=== PATIENT | male | born 1955 | race Caucasian/White ===

== ENCOUNTER → 2016-04-23 | Outpatient (CLI) | payer BC, OTHER ==
[~2016-04-23] MED LIST: CYCL10TA6 PO; HYDR-5688 PO; NAPR1TAB9 PO; ONDA4TAB46 SL; TRAM-10 PO
[2016-04-23 13:51] LABS: BLOOD UREA NITROGEN 29 mg/dl (7-18); CREATININE 0.92 mg/dl (0.60-1.40)
== END | disposition home or self-care (01) ==
LOC: C.LABSPEC 12:48
PROVIDERS: ATTEND Orthopaedic Surgery
DX: M54.17 Radiculopathy, lumbosacral region (principal)

== ENCOUNTER → 2016-07-01 | Outpatient (CLI) | payer BC, OTHER | END | disposition home or self-care (01) | LOC: C.PATHSPEC 16:36 | PROVIDERS: ATTEND Internal Medicine | DX: L82.1 Other seborrheic keratosis (principal) ==

== ENCOUNTER 2016-09-01 20:16 | Emergency (ER) | payer BC, OTHER ==
[~2016-09-01] VITALS: Ht 182.9 cm; Wt 102.3 kg
[~2016-09-01 20:16] MED LIST changes: -CYCL10TA6 PO; -HYDR-5688 PO; -ONDA4TAB46 SL; -TRAM-10 PO
[2016-09-01 20:20] VITALS: TEMP 36.7; Ht 182.9 cm; Wt 102.3 kg
[2016-09-01] MEDS ORDERED: MoRPHine SULFATE 10 MG/ML CARP/VIAL IV STA (20:52)
[2016-09-01] MEDS ORDERED: ONDANSETRON INJ 2 MG/ML 2 ML VIAL IV STA (20:52)
[2016-09-01] MEDS ORDERED: SODIUM CHLORIDE 0.9% 1000ML 1,000 ML IV STA ×2 (20:52)
[2016-09-01] MEDS ORDERED: KETOROLAC TROMETHAMINE 30 MG/ML VIAL IV STA (20:52)
[2016-09-01 21:33] LABS: BASO % 0.2 %; BASO ABS # 0.02 K/uL (0-0.2); COMPLETE YES; EOS % 0.1 %; HEMATOCRIT 42.8 % (42-52); IG% 0.2 %; LYMPH % 8.7 %; MEAN CELL VOLUME 89.4 fL (80-100); MEAN CORPUSCULAR HEMOGLOBIN 31.1 pg (25-34); MEAN CORPUSCULAR HGB CONC 34.8 g/dl (32-36); MEAN PLATELET VOLUME 10.5 fL (7.4-10.4); MONO % 4.8 %; PLATELET COUNT 212 K/uL (130-400); RED BLOOD COUNT 4.79 M/uL (4.7-6.1); WHITE BLOOD COUNT 9.21 K/uL (4.8-10.8)
[2016-09-01 21:41] LABS: URINE APPEARANCE CLEAR (CLEAR); URINE BILIRUBIN NEG (NEG); URINE COLOR YELLOW; URINE NITRITE NEG (NEG); URINE PH 6.5 (4.5-7.5); URINE SPECIFIC GRAVITY 1.017 (1.000-1.030); UROBILINOGEN NEG (NEG)
[2016-09-01 21:49] LABS: BUN/CREATININE RATIO 18.9 (10-20); CALCIUM 9.2 mg/dl (8.5-10.1); CREATININE 0.98 mg/dl (0.60-1.40); POTASSIUM 3.7 mmol/L (3.5-5.1)
[2016-09-01 21:49] LABS: MANUAL MICROSCOPIC REQUIRED? NO; REVIEW REQ? NO
[2016-09-01 21:52] LABS: ALB/GLOB RATIO 1.1 (0.9-2)
--- NOTE | 2016-09-01 22:45 | DIAGNOSTIC IMAGING REPORT ---
CT OF THE ABDOMEN AND PELVIS WITHOUT CONTRAST, STONE PROTOCOL CLINICAL HISTORY: Right flank pain. COMPARISON STUDY: CT of the abdomen and pelvis August 22, 2014 and renal ultrasound June 18, 2015. TECHNIQUE: Helical axial images of the abdomen and pelvis were obtained without IV or oral contrast according to renal stone protocol. FINDINGS: There is a small hiatal hernia. Left-sided parapelvic cysts are noted. There are no ureteral calculi. There is a possible punctate calculus within the lower pole of the left kidney. There is mild symmetric bilateral perinephric infiltration. A few low-attenuation left renal lesions are suboptimally assessed on this unenhanced exam but likely reflect cysts. Unenhanced images of liver, spleen, adrenal glands and pancreas are unremarkable. There is no evidence for a bowel obstruction. The appendix is normal. There is no ascites or lymphadenopathy. No suspicious skeletal lesions are identified. Postsurgical findings within the lumbar spine are suboptimally assessed by CT. IMPRESSION: 1. No hydronephrosis or ureteral tract. Possible punctate left renal calculus. Left-sided parapelvic cysts. 2. Mild symmetric bilateral perinephric infiltration which is nonspecific and be correlated with urinalysis. 3. No bowel obstruction. Normal appendix. Electronically signed by: Faustino Padilla M.D. 09/01/2016 10:44 PM Dictated Date/Time: 09/01/2016 10:35 PM
[2016-09-01] MEDS ORDERED: TRAMADOL HCL 50 MG HOME PACK PO ONE (23:00)
[2016-09-01] MEDS ORDERED: FLEXERIL HOME PACK 10 MG VIAL PO ONE (23:00)
[2016-09-01] MEDS ORDERED: CYCL10TA6 PO (23:01)
[2016-09-01] MEDS ORDERED: TRAM-10 PO (23:01)
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
[2016-09-01 23:08] VITALS: BP 134/79; PULSE 67; O2SAT 96
[2016-09-02] MEDS ORDERED: CYCL10TA6 PO (21:35)
[2016-09-02] MEDS ORDERED: ONDA4TAB46 SL (21:35)
[2016-09-02] MEDS ORDERED: HYDR-5688 PO (21:35)
== END 2016-09-01 23:18 | disposition home or self-care (01) ==
LOC: C.EDB 20:18 → C.EDA 23:18
DX: R10.9 Unspecified abdominal pain (principal); K21.9 Gastro-esophageal reflux disease without esophagitis; G82.20 Paraplegia, unspecified

== ENCOUNTER 2016-09-02 20:56 | Emergency (ER) | payer BC ==
[~2016-09-02] VITALS: Ht 182.9 cm; Wt 103.0 kg
[~2016-09-02 20:56] MED LIST changes: +CYCL10TA6 PO; +TRAM-10 PO
[2016-09-02 20:59] VITALS: TEMP 36.8; Ht 182.9 cm; Wt 103.0 kg
--- NOTE | 2016-09-02 21:15 | EMERGENCY ROOM VISIT NOTE ---
History Report prepared by Sujit: Vini Miller Under the Supervision of: Dr. Austin Burnette M.D. First contact with patient: 21:02 Chief Complaint: BACK PAIN Stated Complaint: SEVERE BACK PAIN History of Present Illness The patient is a 61 year old male who presents to the Emergency Room with complaints of worsening right-sided back pain that started 2 days ago. He says the pain makes it hurt to move and breathe, and he describes the pain as terrible and "unbelievable".The patient says that he is short of breath due to the pain. He denies any recent injury that would cause this pain. He was seen here yesterday for the same pain. The patient says that he saw his primary care physician this morning, and the physician thought it could be the start of shingles. The patient had his pain medications increased. He denies any abdominal pain, cough numbness in his legs, or loss of bowel or bladder control. He says that he feels weak because he has not eaten in 2 days due to not having an appetite. The patient's notes that the patient has taken Hydrocodone and Flexeril today. She says that last night, the patient's shirt was soaking wet around the back only. The patient adds that he had a spinal cord injury 40 years ago, and had back surgery a year ago. He has no history of kidney stones or blood clots. Source of History: patient, spouse/significant other Onset: A few days ago Position: back (right) Symptom Intensity: terrible, unbelievable Timing: worsening Modifying Factors (Worsening): breathing, movement Associated Symptoms: + diaphoresis, + SOB, + weakness (not eating), No cough , No abdominal pain, No numbness (no increased numbness in legs) Note: Associated symptoms: Denies loss of bowel or bladder control. Review of Systems See HPI for pertinent positives & negatives. A total of 10 systems reviewed and were otherwise negative. Past Medical & Surgical Medical Problems: (1) GERD (gastroesophageal reflux disease) (2) Paraplegia, Unspecified Surgical Problems: (1) History of lumbar discectomy (2) History of lumbar laminectomy Family History FHx: cancer Social History Smoking Status: Never Smoker Marital Status: Housing Status: lives with family Occupation Status: employed Current/Historical Medications Scheduled Cyclobenzaprine Hcl (Flexeril), 10 MG PO TID Hydrocodone/Acetaminophen 5MG/325MG ([place] 5MG/325MG), 1 TABLET PO Q4 Scheduled PRN Ondansetron Hcl (Zofran), 1 TAB SL prn ud PRN for Nausea Allergies Coded Allergies: Adhesives (Verified Allergy, Intermediate, REDDENED RASH, 09/02/16) Bacitracin (Verified Allergy, Unknown, UNKNOWN, 09/02/16) Neomycin (Verified Allergy, Unknown, UNKNOWN, 09/02/16) Penicillins (Verified Allergy, Unknown, UNKNOWN-HAPPENED LONG AGO, 09/02/16 ) Polymyxin B (Verified Allergy, Unknown, UNKNOWN, 09/02/16) Physical Exam Vital Signs Date Time Temp Pulse Resp B/P (MAP) Pulse Ox O2 Delivery O2 Flow Rate FiO2 09/02/16 23:33 72 16 170/98 95 Room Air 09/02/16 22:23 68 18 153/85 97 Room Air 09/02/16 22:07 67 09/02/16 21:35 69 20 208/109 97 Room Air 09/02/16 20:59 36.8 84 18 169/91 95 Room Air Physical Exam General: Well developed well nourished uncomfortable appearing middle aged male complaining of mid-back pain worse with movement, breathing comfortably on room air. Normal speech HEENT: Normal cephalic atraumatic. Pupils are equal round and reactive to light. Extraocular movements are intact. Oropharynx is pink with moist mucous membranes. No swelling of the mouth lips or tongue. Neck: Supple with a midline trachea. No meningeal signs or stiffness, no JVD or bruits. No Stridor. Chest: Clear to auscultation bilaterally. No wheezes or rhonchi. No increased work of breathing. Heart: regular rate and rhythm. Abdomen: Soft nontender, nondistended without rebound guarding or rigidity. Extremities: No cyanosis clubbing or edema. No calf tenderness or assymetry Spine/Back. Non tender to palpation. No CVA tenderness. No rash. Skin: Good turgor without rashes. Neurologic exam: Cranial nerves two through 12 are intact. Motor and sensation are intact and symmetrical throughout. Medical Decision & Procedures ER Provider Diagnostic Interpretation: Radiology results as stated below per my review and radiologist interpretation: SINGLE VIEW CHEST CLINICAL HISTORY: Atypical chest pain. FINDINGS: An AP, portable, upright chest radiograph is obtained. No prior studies are available for comparison at the time of dictation. The examination is degraded by portable technique and patient rotation. The cardiomediastinal silhouette is unremarkable. There is elevation of right hemidiaphragm with mild bibasilar atelectasis. The lungs and pleural spaces are otherwise clear. No pneumothorax is seen. There is chronic deformity of the right seventh rib. Surgical clips project over the upper abdomen. IMPRESSION: No acute cardiopulmonary abnormality. Electronically signed by: Saroj Garibay M.D. 09/02/2016 9:50 PM Dictated Date/Time: 09/02/2016 9:[address] ANGIOGRAM OF THE CHEST CLINICAL HISTORY: Right-sided chest pain. COMPARISON STUDY: Chest x-ray dated 09/02/2016. Abdominal CT dated 09/01/2016 and 08/22/2014. TECHNIQUE: Following the IV administration of 109 cc of Optiray 320, CT angiogram of the chest was performed from the upper abdomen to the thoracic inlet utilizing the pulmonary embolus protocol. Images are reviewed in the axial, sagittal, and coronal planes. 3-D MIPS images are created and assessed. IV contrast was administered without complication. CT DOSE: 536.76 mGy.cm FINDINGS: Thyroid: Imaged portions of the thyroid gland are normal in size and attenuation. Thoracic aorta: There is mild atherosclerotic calcification of the thoracic aorta, which is normal in caliber and demonstrates standard 3-vessel arch anatomy. The aorta is not well opacified. Pulmonary vasculature: The pulmonary arteries are dilated suggesting pulmonary artery hypertension. There are no filling defects identified in main, lobar, or segmental pulmonary branches to suggest pulmonary embolus. Heart: The heart is enlarged and without pericardial effusion. Lungs and pleural spaces: There is no airspace consolidation or pleural effusion. Dependent atelectasis is noted. The trachea and central airways are clear. A 6 mm focus of pleural-based nodularity is seen in the right lower lobe along the major fissure on image #105. Smaller foci of pleural-based nodularity are noted along the right major and minor fissures. There is a 5 mm right upper lobe pulmonary nodule seen on image #159. Mediastinum: There is no mediastinal lymphadenopathy. Surekha: Clear. Axillae: There is no axillary lymphadenopathy. Upper abdomen: There is a small hiatal hernia. Partially visualized upper abdominal viscera is otherwise within normal limits. Skeletal structures: The skeletal structures are osteopenic. Degenerative change is noted throughout the thoracic spine. No lytic or blastic bony lesions are seen. Chronic deformity of the right seventh rib is similar to prior studies. IMPRESSION: 1. There is no evidence of pulmonary embolus in the main, lobar, or segmental pulmonary arteries. 2. There is no airspace consolidation or pleural effusion. 3. Cardiomegaly with evidence of pulmonary artery hypertension. 4. There are scattered pulmonary and pleural-based nodules as above measuring up to 6 mm. These can be followed as per the Fleischner criteria. See below. Please refer to below summary of Fleischner criteria recommendations for follow-up of incidental CT nodules (Jayant Gagnon, Guidelines for management of small pulmonary nodules detected on CT scans: A statement from the Fleischner Society, Radiology 237: [phone].) SOLID NODULES Solitary nodule size: <6 mm * low risk patients: no follow-up needed * high risk patients: optional CT at 12 months Solitary nodule size: 6-8 mm * low risk patients: follow-up at 6-12 months, then consider further follow-up at 18-24 months * high risk patients: initial follow-up CT at 6-12 months and then at 18-24 months if no change Solitary nodule size: >8 mm * either low or high risk patients - consider follow-up CT at 3 months, and/or CT-PET, and/or biopsy Multiple nodules size: <6 mm * low risk patients: no routine follow-up * high risk patients: optional CT at 12 months Multiple nodules size: 6-8 mm * low risk patients: follow-up at 3-6 months, then consider further follow-up at 18-24 months * high risk patients: follow-up at 3-6 months, then at 18-24 months if no change Multiple nodules size: >8 mm * low risk patients: follow-up at 3-6 months, then consider further follow-up at 18-24 months * high risk patients: follow-up at 3-6 months, then at 18-24 months if no change Note: newly detected indeterminate nodule in persons 35 years of age or older. * low risk patients: minimal or absent history of smoking and/or other known risk factors * high risk patients: history of smoking or of other known risk factors (e.g. first degree relative with lung cancer, or exposure to asbestos, radon, uranium) * if a nodule up to 8 mm is partly solid or is ground glass further follow-up is required after 24 months to exclude possible slow growing adenocarcinoma (TRUDY) SUBSOLID NODULES Solitary pure ground-glass nodule * nodule size <6 mm - no CT follow-up required * nodule size >=6 mm - follow-up CT at 6-12 months, then every 2 years until 5 years Solitary part-solid nodule * nodule size <6 mm - no CT follow-up required * nodule size >=6 mm - follow-up CT at 3-6 months. If unchanged, and solid component remains <6 mm, then annual follow-up for 5 years Multiple subsolid nodules * nodule size <6 mm - follow-up CT at 3-6 months, consider further follow-up at 2 and 4 years if stable * nodule size >=6 mm - follow-up CT at 3-6 months, subsequent management based on the most suspicious nodule(s) Electronically signed by: Saroj Garibay M.D. 09/02/2016 10:51 PM Dictated Date/Time: 09/02/2016 10:45 PM Laboratory Results 09/02/16 21:30 Red Blood Count 4.77, Mean Corpuscular Volume 88.3, Mean Corpuscular Hemoglobin 31.2, Mean Corpuscular Hemoglobin Concent 35.4, Mean Platelet Volume 10.0, Neutrophils (%) (Auto) 81.2, Lymphocytes (%) (Auto) 9.7, Monocytes (%) (Auto) 8.3, Eosinophils (%) (Auto) 0.3, Basophils (%) (Auto) 0.2, Neutrophils # (Auto) 7.98, Lymphocytes # (Auto) 0.95, Monocytes # (Auto) 0.82, Eosinophils # (Auto) 0.03, Basophils # (Auto) 0.02 09/02/16 21:30 Test 09/02/16 21:30 09/02/16 21:39 White Blood Count 9.83 K/uL (4.8-10.8) Red Blood Count 4.77 M/uL (4.7-6.1) Hemoglobin 14.9 g/dL (14.0-18.0) Hematocrit 42.1 % (42-52) Mean Corpuscular Volume 88.3 fL (80-100) Mean Corpuscular Hemoglobin 31.2 pg (25-34) Mean Corpuscular Hemoglobin Concent 35.4 g/dl (32-36) Platelet Count 218 K/uL (130-400) Mean Platelet Volume 10.0 fL (7.4-10.4) Neutrophils (%) (Auto) 81.2 % Lymphocytes (%) (Auto) 9.7 % Monocytes (%) (Auto) 8.3 % Eosinophils (%) (Auto) 0.3 % Basophils (%) (Auto) 0.2 % Neutrophils # (Auto) 7.98 K/uL (1.4-6.5) Lymphocytes # (Auto) 0.95 K/uL (1.2-3.4) Monocytes # (Auto) 0.82 K/uL (0.11-0.59) Eosinophils # (Auto) 0.03 K/uL (0-0.5) Basophils # (Auto) 0.02 K/uL (0-0.2) RDW Standard Deviation 38.4 fL (36.4-46.3) RDW Coefficient of Variation 12.0 % (11.5-14.5) Immature Granulocyte % (Auto) 0.3 % Immature Granulocyte # (Auto) 0.03 K/uL (0.00-0.02) Anion Gap 6.0 mmol/L (3-11) Est Creatinine Clear Calc Drug Dose 100.1 ml/min Estimated GFR () 99.0 Estimated GFR (Non- 85.4 BUN/Creatinine Ratio 15.9 (10-20) Calcium Level 9.0 mg/dl (8.5-10.1) Total Bilirubin 0.7 mg/dl (0.2-1) Direct Bilirubin 0.1 mg/dl (0-0.2) Aspartate Amino Transf (AST/SGOT) 16 U/L (15-37) Alanine Aminotransferase (ALT/SGPT) 30 U/L (12-78) Alkaline Phosphatase 86 U/L (45-117) Total Protein 7.5 gm/dl (6.4-8.2) Albumin 3.8 gm/dl (3.4-5.0) Lipase 77 U/L (73-393) Bedside D-Dimer > 450 ng/mlFEU (0-450) Laboratory studies as stated above per my review. Medications Administered Medications (Trade) Dose Ordered Sig/Deb Route Start Time Stop Time Status Last Admin Dose Admin Sodium Chloride 1,000 ml @ 999 mls/hr Q1H1M STAT IV 09/02/16 21:16 09/02/16 22:16 DC 09/02/16 21:38 999 MLS/HR Sodium Chloride 1,000 ml @ 150 mls/hr Q6H40M ONCE IV 09/02/16 21:16 09/03/16 03:55 09/02/16 21:16 150 MLS/HR Ketorolac Tromethamine (Toradol Inj) 30 mg NOW STAT IV 09/02/16 21:16 09/02/16 21:18 DC 09/02/16 21:43 30 MG Ondansetron HCl (Zofran Inj) 4 mg NOW STAT IV 09/02/16 21:16 09/02/16 21:18 DC 09/02/16 21:42 4 MG Morphine Sulfate (MoRPHine SULFATE INJ) 2 mg STK-MED ONCE .ROUTE 09/02/16 21:39 09/02/16 21:40 DC 09/02/16 21:39 2 MG Morphine Sulfate (MoRPHine SULFATE INJ) 4 mg STK-MED ONCE .ROUTE 09/02/16 21:39 09/02/16 21:40 DC 09/02/16 21:39 4 MG ECG Indication: SOB/dyspnea Rate (beats per minute): 70 Rhythm: normal sinus Findings: no acute ischemic change, no ectopy Comparison ECG Date: no prior available ED Course 2102: Past medical records reviewed. The patient was evaluated in room C7, and a complete history and physical examination were performed. 2115: Ordered Morphine Sulfate Inj 6 mg IV, Zofran Inj 4 mg IV, Toradol Inj 30 mg IV, NSS 1000 ml @ 150 mls/hr IV, NSS 1000 ml @ 999 mls/hr IV. 2226: I reevaluated the patient, and he is doing well. He is going to CT. 7: I reevaluated the patient and he is doing well. 9: I discussed the patient with Dr. Hilario - [facility] - says he saw the patient in the office, and thinks it is musculoskeletal. He told the patient to continue his medications. 2327: Upon reevaluation, the patient is resting comfortably. I discussed the results and treatment plan with him. He verbalized agreement of the treatment plan. The patient was discharged home. Medical Decision Differentials include, but are not limited to; musculoskeletal, pulmonary disease, kidney stone, aneurysm, infection, shingles, electrolyte or metabolic abnormality. Medication Reconciliation: I attest that I have personally reviewed the patient' s current medication list. Blood Pressure Screening: Patient was found to have a slightly elevated blood pressure due to circumstances. I do not believe that the patient requires hypertension monitoring. This patient comes in as described above. He was placed in room C7. He is having flank pain. It is in his right posterior lower chest/flank. It is worse with movement and palpation. He does have a history of a spinal cord injury as a child but has no new numbness weakness. Specifically, he has nothing to suggest cauda equina syndrome. He has had no fever or chills. No dysuria or hematuria. He had extensive workup done yesterday including a CAT scan of his abdomen which was unremarkable. His blood work was unremarkable. I did an EKG today which shows no ischemic changes or evidence to suggest cardiac event. His blood work was also unremarkable with exception d-dimer being elevated. In light of this, I did a chest CT. There is no evidence of PE. The patient did receive IV morphine 6 mg as well as Toradol 30 mg IV and Zofran 4 g IV. He is feeling significantly better. I did discuss case with Dr. Shauna Collazo, his primary care physician he saw him today and and believes that it is musculoskeletal, I agree. the patient should continue to use hydrocodone and can increase it to 2 pills every 4 hours at a maximum and was warned that this could make him drowsy and be careful getting up and down. And return if: Increasing pain, worsening symptoms, numbness weakness, fever chills, any new problems or concerns and follow-up with Dr. Hilario for recheck Consults Time Called: [phone] Consulting Physician: Dr. Hilario - [facility] Returned Call: [phone] I discussed the patient with Dr. Hilario - [facility] - says he saw the patient in the office, and thinks it is musculoskeletal. He told the patient to continue his medications. Impression Primary Impression: Right flank pain Scribe Attestation The scribe's documentation has been prepared under my direction and personally reviewed by me in its entirety. I confirm that the note above accurately reflects all work, treatment, procedures, and medical decision making performed by me. Departure Information Dispostion Home / Self-Care Referrals Barry Alvarez M.D. (PCP) Forms HOME CARE DOCUMENTATION FORM, IMPORTANT VISIT INFORMATION Patient Instructions My [facility] Additional Instructions Rest. Use a heating pad Drink plenty of fluids. Continue to use her Flexeril as directed The hydrocodone you can use one to 2 pills every 4-6 hours Remember that the hydrocodone pill has 1 Tylenol/acetaminophen in it and do not take it with any other medications that contain acetaminophen/Tylenol Follow-up with Dr. Hilario Return to the ER if: Numbness or weakness, fever chills, change in bowel or bladder function, any new problems concerns
[2016-09-02] MEDS ORDERED: SODIUM CHLORIDE 0.9% 1000ML 1,000 ML IV STA (21:16)
[2016-09-02] MEDS ORDERED: ONDANSETRON INJ 2 MG/ML 2 ML VIAL IV STA (21:16)
[2016-09-02] MEDS ORDERED: SODIUM CHLORIDE 0.9% 1000ML 1,000 ML IV ONE (21:16)
[2016-09-02] MEDS ORDERED: MoRPHine SULFATE 10 MG/ML CARP/VIAL IV STA (21:16)
[2016-09-02] MEDS ORDERED: KETOROLAC TROMETHAMINE 30 MG/ML VIAL IV STA (21:16)
[2016-09-02] MEDS ORDERED: HYDR-5688 PO (21:35)
[2016-09-02] MEDS ORDERED: ONDA4TAB46 SL (21:35)
[2016-09-02] MEDS ORDERED: CYCL10TA6 PO (21:35)
[2016-09-02] MEDS ORDERED: MoRPHine SULFATE 4 MG/ML 1 ML CARP ONE (21:39)
[2016-09-02] MEDS ORDERED: MoRPHine SULFATE 2 MG/ML CARP ONE (21:39)
[2016-09-02 21:51] LABS: BASO % 0.2 %; BASO ABS # 0.02 K/uL (0-0.2); COMPLETE YES; EOS % 0.3 %; HEMATOCRIT 42.1 % (42-52); IG% 0.3 %; LYMPH % 9.7 %; LYMPH ABS # 0.95 K/uL (1.2-3.4); MEAN CELL VOLUME 88.3 fL (80-100); MEAN CORPUSCULAR HEMOGLOBIN 31.2 pg (25-34); MEAN CORPUSCULAR HGB CONC 35.4 g/dl (32-36); MONO % 8.3 %; NEUT % 81.2 %; PLATELET COUNT 218 K/uL (130-400); RED BLOOD COUNT 4.77 M/uL (4.7-6.1); WHITE BLOOD COUNT 9.83 K/uL (4.8-10.8)
--- NOTE | 2016-09-02 21:51 | DIAGNOSTIC IMAGING REPORT ---
SINGLE VIEW CHEST CLINICAL HISTORY: Atypical chest pain. FINDINGS: An AP, portable, upright chest radiograph is obtained. No prior studies are available for comparison at the time of dictation. The examination is degraded by portable technique and patient rotation. The cardiomediastinal silhouette is unremarkable. There is elevation of right hemidiaphragm with mild bibasilar atelectasis. The lungs and pleural spaces are otherwise clear. No pneumothorax is seen. There is chronic deformity of the right seventh rib. Surgical clips project over the upper abdomen. IMPRESSION: No acute cardiopulmonary abnormality. Electronically signed by: Saroj Graibay M.D. 09/02/2016 9:50 PM Dictated Date/Time: 09/02/2016 9:49 PM
[2016-09-02 22:08] LABS: BUN/CREATININE RATIO 15.9 (10-20); CREATININE 0.95 mg/dl (0.60-1.40); POTASSIUM 3.6 mmol/L (3.5-5.1)
[2016-09-02] MEDS ORDERED: OPTIRAY 320 IV PRN (22:30)
--- NOTE | 2016-09-02 22:52 | DIAGNOSTIC IMAGING REPORT ---
CT ANGIOGRAM OF THE CHEST CLINICAL HISTORY: Right-sided chest pain. COMPARISON STUDY: Chest x-ray dated 09/02/2016. Abdominal CT dated 09/01/2016 and 08/22/2014. TECHNIQUE: Following the IV administration of 109 cc of Optiray 320, CT angiogram of the chest was performed from the upper abdomen to the thoracic inlet utilizing the pulmonary embolus protocol. Images are reviewed in the axial, sagittal, and coronal planes. 3-D MIPS images are created and assessed. IV contrast was administered without complication. CT DOSE: 536.76 mGy.cm FINDINGS: Thyroid: Imaged portions of the thyroid gland are normal in size and attenuation. Thoracic aorta: There is mild atherosclerotic calcification of the thoracic aorta, which is normal in caliber and demonstrates standard 3-vessel arch anatomy. The aorta is not well opacified. Pulmonary vasculature: The pulmonary arteries are dilated suggesting pulmonary artery hypertension. There are no filling defects identified in main, lobar, or segmental pulmonary branches to suggest pulmonary embolus. Heart: The heart is enlarged and without pericardial effusion. Lungs and pleural spaces: There is no airspace consolidation or pleural effusion. Dependent atelectasis is noted. The trachea and central airways are clear. A 6 mm focus of pleural-based nodularity is seen in the right lower lobe along the major fissure on image #105. Smaller foci of pleural-based nodularity are noted along the right major and minor fissures. There is a 5 mm right upper lobe pulmonary nodule seen on image #159. Mediastinum: There is no mediastinal lymphadenopathy. Surekha: Clear. Axillae: There is no axillary lymphadenopathy. Upper abdomen: There is a small hiatal hernia. Partially visualized upper abdominal viscera is otherwise within normal limits. Skeletal structures: The skeletal structures are osteopenic. Degenerative change is noted throughout the thoracic spine. No lytic or blastic bony lesions are seen. Chronic deformity of the right seventh rib is similar to prior studies. IMPRESSION: 1. There is no evidence of pulmonary embolus in the main, lobar, or segmental pulmonary arteries. 2. There is no airspace consolidation or pleural effusion. 3. Cardiomegaly with evidence of pulmonary artery hypertension. 4. There are scattered pulmonary and pleural-based nodules as above measuring up to 6 mm. These can be followed as per the Fleischner criteria. See below. Please refer to below summary of Fleischner criteria recommendations for follow-up of incidental CT nodules (Jayant Gagnon, Guidelines for management of small pulmonary nodules detected on CT scans: A statement from the Fleischner Society, Radiology 237: [phone].) SOLID NODULES Solitary nodule size: <6 mm * low risk patients: no follow-up needed * high risk patients: optional CT at 12 months Solitary nodule size: 6-8 mm * low risk patients: follow-up at 6-12 months, then consider further follow-up at 18-24 months * high risk patients: initial follow-up CT at 6-12 months and then at 18-24 months if no change Solitary nodule size: >8 mm * either low or high risk patients - consider follow-up CT at 3 months, and/or CT-PET, and/or biopsy Multiple nodules size: <6 mm * low risk patients: no routine follow-up * high risk patients: optional CT at 12 months Multiple nodules size: 6-8 mm * low risk patients: follow-up at 3-6 months, then consider further follow-up at 18-24 months * high risk patients: follow-up at 3-6 months, then at 18-24 months if no change Multiple nodules size: >8 mm * low risk patients: follow-up at 3-6 months, then consider further follow-up at 18-24 months * high risk patients: follow-up at 3-6 months, then at 18-24 months if no change Note: newly detected indeterminate nodule in persons 35 years of age or older. * low risk patients: minimal or absent history of smoking and/or other known risk factors * high risk patients: history of smoking or of other known risk factors (e.g. first degree relative with lung cancer, or exposure to asbestos, radon, uranium) * if a nodule up to 8 mm is partly solid or is ground glass further follow-up is required after 24 months to exclude possible slow growing adenocarcinoma (TRUDY) SUBSOLID NODULES Solitary pure ground-glass nodule * nodule size <6 mm - no CT follow-up required * nodule size >=6 mm - follow-up CT at 6-12 months, then every 2 years until 5 years Solitary part-solid nodule * nodule size <6 mm - no CT follow-up required * nodule size >=6 mm - follow-up CT at 3-6 months. If unchanged, and solid component remains <6 mm, then annual follow-up for 5 years Multiple subsolid nodules * nodule size <6 mm - follow-up CT at 3-6 months, consider further follow-up at 2 and 4 years if stable * nodule size >=6 mm - follow-up CT at 3-6 months, subsequent management based on the most suspicious nodule(s) Electronically signed by: Saroj Garibay M.D. 09/02/2016 10:51 PM Dictated Date/Time: 09/02/2016 10:45 PM
[2016-09-02 23:33] VITALS: BP 170/98; PULSE 72; O2SAT 95
== END 2016-09-02 23:40 | disposition home or self-care (01) ==
LOC: C.EDB 20:57 → C.EDC 23:40
DX: R10.9 Unspecified abdominal pain (principal); K21.9 Gastro-esophageal reflux disease without esophagitis; G82.20 Paraplegia, unspecified

== ENCOUNTER → 2017-03-03 | Outpatient (CLI) | payer OTHER ==
[~2017-03-03] MED LIST changes: +HYDR-5688 PO; -NAPR1TAB9 PO; +ONDA4TAB46 SL; -TRAM-10 PO
--- NOTE | 2017-03-03 12:18 | DIAGNOSTIC IMAGING REPORT ---
(CHEST) THORAX WITHOUT CT DOSE: 586.11 mGycm HISTORY: Follow-up. R91.8 Multiple lung nodules on [id number] TECHNIQUE: Multiaxial CT images of the chest were performed without contrast. A dose lowering technique was utilized adhering to the principles of ALARA. COMPARISON: Chest CTA 09/02/2016 FINDINGS: The central airways are patent. No pleural effusions. No pneumothorax. There again noted a few scattered subcentimeter pulmonary nodules. These remain unchanged in size. No new pulmonary nodules identified. Dominant nodule within the right lung is seen within the right lower lobe abutting the major fissure and measures 6 mm. Dominant nodule within the left lung is seen within the left upper lobe on image 92 and measures 5 mm. No suspicious lytic or blastic osseous lesions. Right lateral seventh rib deformity, unchanged. No mediastinal or hilar lymphadenopathy. Normal caliber thoracic aorta. The heart is normal in size. Small hiatus hernia. The unenhanced liver, spleen, and adrenal glands are unremarkable. IMPRESSION: No change in the few scattered subcentimeter pulmonary nodules as described above with the largest measuring 6 mm. No new pulmonary nodules. Please refer to the chart below for continued follow-up. Please refer to below summary of Fleischner criteria recommendations for follow-up of incidental CT nodules (Jayant Gagnon, Guidelines for management of small pulmonary nodules detected on CT scans: A statement from the Fleischner Society, Radiology 237: [id number].) SOLID NODULES Solitary nodule size: <6 mm * Low risk patients: no follow-up needed * high risk patients: optional CT at 12 months Solitary nodule size: 6-8 mm * Low risk patients: follow-up at 6-12 months, then consider further follow-up at 18-24 months * high risk patients: initial follow-up CT at 6-12 months and then at 18-24 months if no change Solitary nodule size: >8 mm * either low or high risk patients - consider follow-up CT at 3 months, and/or CT-PET, and/or biopsy Multiple nodules size: <6 mm * Low risk patients: no routine follow-up * high risk patients: optional CT at 12 months Multiple nodules size: 6-8 mm * Low risk patients: follow-up at 3-6 months, then consider further follow-up at 18-24 months * high risk patients: follow-up at 3-6 months, then at 18-24 months if no change Multiple nodules size: >8 mm * Low risk patients: follow-up at 3-6 months, then consider further follow-up at 18-24 months * high risk patients: follow-up at 3-6 months, then at 18-24 months if no change Note: newly detected indeterminate nodule in persons 35 years of age or older. * Low risk patients: minimal or absent history of smoking and/or other known risk factors * high risk patients: history of smoking or of other known risk factors (e.g. first degree relative with lung cancer, or exposure to asbestos, radon, uranium) * if a nodule up to 8 mm is partly solid or is ground glass further follow-up is required after 24 months to exclude possible slow growing adenocarcinoma (TRUDY) SUBSOLID NODULES Solitary pure ground-glass nodule * nodule size <6 mm - no CT follow-up required * nodule size >=6 mm - follow-up CT at 6-12 months, then every 2 years until 5 years Solitary part-solid nodule * nodule size <6 mm - no CT follow-up required * nodule size >=6 mm - follow-up CT at 3-6 months. If unchanged, and solid component remains <6 mm, then annual follow-up for 5 years Multiple subsolid nodules * nodule size <6 mm - follow-up CT at 3-6 months, consider further follow-up at 2 and 4 years if stable * nodule size >=6 mm - follow-up CT at 3-6 months, subsequent management based on the most suspicious nodule(s) Electronically signed by: Stanley Sanchez M.D. 03/03/2017 12:16 PM Dictated Date/Time: 03/03/2017 12:10 PM
== END | disposition home or self-care (01) ==
LOC: C.CTS 11:21
PROVIDERS: ATTEND Surgery
DX: R91.8 Other nonspecific abnormal finding of lung field (principal)

== ENCOUNTER → 2017-05-24 | Outpatient (CLI) | payer OTHER ==
[2017-05-24 18:45] LABS: LUTEINIZING HORMONE 7.22 IU/L
[2017-05-28 16:37] LABS: TESTOSTERONE,TOTAL 345 ng/dL (250-1100)
== END | disposition home or self-care (01) ==
LOC: C.LABSPEC 17:34
PROVIDERS: ATTEND Internal Medicine
DX: N62 Hypertrophy of breast (principal)

== ENCOUNTER → 2017-07-05 | Outpatient (CLI) | payer OTHER ==
--- NOTE | 2017-07-05 15:05 | MAMMOGRAPHY REPORT ---
MALE BILATERAL DIGITAL DIAGNOSTIC MAMMOGRAM TOMOSYNTHESIS WITH CAD AND TARGETED BILATERAL ULTRASOUND: 07/05/2017 CLINICAL HISTORY: 62-year-old male presents with a reported history of a few weeks of bilateral nippl e soreness, which has since subsided. No skin erythema or thickening. No nipple discharge. No palp able lumps. Patient also reports recent increase in exercise regimen. TECHNIQUE: Bilateral breast tomosynthesis in addition to standard 2D mammography was performed. Curr ent study was also evaluated with a Computer Aided Detection (CAD) system. COMPARISON: No prior exams were available for comparison. BREAST COMPOSITION: The breast parenchyma is nearly entirely fat. FINDINGS: There is mild glandular tissue in the retroareolar right breast, consistent with gynecomas tia. No significant glandular tissue development of the left breast. No suspicious masses, architec tural distortion or cluster of microcalcifications is seen. Targeted ultrasound was performed in the retroareolar aspect of each breast. There is a hypoechoic a mount of glandular tissue in the retroareolar right breast. No significant glandular tissue developm ent in the left retroareolar breast. These findings are compatible with gynecomastia. There is no e vidence of a suspicious solid mass or targeted sonographic evidence of malignancy. IMPRESSION: ACR BI-RADS CATEGORY 2: BENIGN, TARGETED ULTRASOUND ACR BI-RADS CATEGORY 2: BENIGN There is mild right breast gynecomastia. No suspicious mammographic or targeted sonographic abnormal ity of either breast or evidence of malignancy. It is unclear if the right gynecomastia could be rel ated to the reported nipple soreness which has subsided. Therefore, continued clinical follow-up and clinical monitoring is recommended. These results and recommendations were discussed with the patient at the time of the exam. Approximately 10% of breast cancers are not detected with mammography. A negative mammographic report should not delay biopsy if a clinically suggestive mass is present. Loly Talley M.D. ay/:07/05/2017 12:48:03 Heating Engineer: Sarina CHANG)(Alyssia), [facility] letter sent: Normal 1/2 BI-RADS Code: ACR BI-RADS Category 2: Benign Ultrasound BI-RADS: ACR BI-RADS Category 2: Benign
== END | disposition home or self-care (01) ==
LOC: C.MAMM 11:00
PROVIDERS: ATTEND Internal Medicine
DX: N62 Hypertrophy of breast (principal)

== ENCOUNTER → 2017-09-29 | Outpatient (CLI) | payer OTHER ==
[~2017-09-29] MED LIST changes: -CYCL10TA6 PO; -HYDR-5688 PO; +NAPR1TAB9 PO; -ONDA4TAB46 SL
--- NOTE | 2017-09-29 12:01 | DIAGNOSTIC IMAGING REPORT ---
(CHEST) THORAX WITHOUT CLINICAL HISTORY: 62 years-old Male presenting with R91.8 Multiple lung nodules on [id number]. TECHNIQUE: Multidetector CT imaging of the chest was performed without the use of intravenous contrast. IV contrast: None. A dose lowering technique was used consistent with the principles of ALARA (as low as reasonably achievable). COMPARISON: 03/03/2017. CT DOSE (mGy.cm): The estimated cumulative dose is 582.87 mGy.cm. FINDINGS: Shoe Shiner topogram: Surgical clips project over the mediastinal right lung base. On soft tissue windows, normal thyroid and thoracic inlet. No axillary, supraclavicular, or mediastinal lymphadenopathy. Evaluation of the basia limited without intravenous contrast. Bilateral gynecomastia. Atherosclerosis of the aorta. Normal heart size. No pericardial or pleural effusion. Parapelvic cysts may be present in the left kidney. On lung windows, multiple solid pulmonary nodules measuring up to 6-7 mm. Several of these are fissural in location including the largest nodules, which are located in the right middle and lower lobes. Fissural nodules are noted in the right middle and lower lobes (series 4 images 201, 149, 147, 143). Peripheral solid 5 mm nodule noted in the anterior segment of the left upper lobe (series 4 image 109). Additional stable punctate nodules also evident bilaterally (series 4 images 87, 114, 144). No other focal infiltrate. Airways patent. On bone windows, degenerative changes of the spine. Multiple old rib fractures suggested. IMPRESSION: 1. Stable bilateral solid pulmonary nodules measuring up to 6-7 mm. Follow-up per Ricky Society 2017 recommendations below with an initial start date of identification 09/02/2016. No new pulmonary nodule. Please refer to below summary of Fleischner Society 2017 recommendations for follow-up of incidental CT nodules (H Chelsi et al. Guidelines for management of incidental pulmonary nodules detected on CT images: From the Fleischner Society 2017. Radiology 2017; 284: 228-243.) SOLID NODULES Single nodule; size < 6 mm * Low risk patients: No routine follow-up * High risk patients: Optional CT at 12 months Single nodule; size 6-8 mm * Low risk patients: CT at 6-12 months, then consider CT at 18-24 months * High risk patients: CT at 6-12 months, then at 18-24 months Single nodule; size > 8 mm * Either low or high risk patients: Considered CT at 3 months, PET/CT, or tissue sampling Multiple nodules; size < 6 mm * Low risk patients: No routine follow up * High risk patients: Optional CT at 12 months Multiple nodules; size 6-8 mm * Low risk patients: CT at 3-6 months, then consider CT at 18-24 months * High risk patients: CT at 3-6 months, then at 18-24 months Multiple nodules; size > 8 mm * Low risk patients: CT at 3-6 months, then consider at 18-24 months * High risk patients: CT at 3-6 months, then at 18-24 months SUBSOLID NODULES Single ground-glass nodule * Nodule size < 6 mm: No routine follow-up * Nodule size > or = 6 mm: CT at 6-12 months to confirm persistence, then CT every 2 years until 5 years Single part-solid nodule * Nodule size < 6 mm: No routine follow-up * Nodules size > or = 6 mm: CT at 3-6 months to confirm persistence. If unchanged and solid component remains < 6 mm, annual CT should be performed for 5 years Multiple nodules * Nodule size < 6 mm: CT at 3-6 months. If stable, consider CT at 2 and 4 years. * Nodules size > or = 6 mm: CT at 3-6 months. Subsequent management based on the most suspicious nodule(s) NOTE: 1) These guidelines apply to incidental nodules. These guidelines do NOT apply to patients younger than 35 years, immunocompromised patients, or patients with cancer. 2) Risk categories: * Low risk patients: Minimal or absent history of smoking and/or other known risk factors * High risk patients: History of smoking, exposure to other carcinogens, emphysema, fibrosis, upper lobe location, family history of lung cancer, etc. 3) If a nodule up to 8 mm is partly solid or is ground glass, further follow-up is required after 24 months to exclude possible slow growing adenocarcinoma. Electronically signed by: Quintin Manzanares M.D. 09/29/2017 7:56 AM Dictated Date/Time: 09/29/2017 7:44 AM
== END | disposition home or self-care (01) ==
LOC: C.CTS 07:29
PROVIDERS: ATTEND Surgery
DX: R91.8 Other nonspecific abnormal finding of lung field (principal)